=== PATIENT | male | born 2000 | race Caucasian/White ===

== ENCOUNTER 2022-04-07 07:40 | Observation (INO) ==
--- NOTE | 2022-04-01 15:57 | Anesthesiology Consultation ---
Date of Service April 01, 2022 Assessment & Plan (1) Encounter for pre-operative examination: COVID screening: Per assessment on 04/01: No known COVID-19 positive contacts or current COVID-19 related symptoms. Travel screen negative. Patient vaccinated. Surgeon arranging preop COVID testing. Awaiting results. Chart Review Chart Review: Acceptable Risk for Surgery (pending evaluation AM DOS) and Patient NOT seen in Pre Admission Testing History Surgery Operation Date: 04/07/22 10:05 Proposed Procedures p Right Tibia Open Reduction Internal Fixation - Vinh Zurita MD Height/Weight Height: 5 ft 9 in Weight: 101.151 kg Allergies Allergy/AdvReac Type Severity Reaction Status Date / Time No Known Allergies Allergy Verified 04/01/22 14:30 Medications Home Medications Medication Instructions Recorded Confirmed Last Taken ondansetron 4 mg disintegrating 4 mg PO Q6H PRN nausea and 03/31/22 04/01/22 Unknown tablet vomiting #12 tabs oxycodone 5 mg tablet 5 - 10 mg PO Q6H PRN Pain 04/01/22 04/01/22 Unknown Past Medical History Medical History Tibia fracture Fall (while walking dog) Past Surgical History Surgical History Hx of tonsillectomy Social History Smoking Status: Never smoker Do You Dip or Chew Tobacco: No Hx Alcohol Use: No Hx Substance Use: No substance use type: does not use Testing Electrocardiogram Date: 07/21/21 Findings: + ST @ (117) Sinus tachy in setting of PNA 07/21/21 - Rx'd abx > HR 91 subsequently at 03/31/22 [place] ER visit. Chest X-Ray Date: 07/21/21 No acute chest disease per report. Per [facility] ER note "Chest x-ray shows what appears to be an infiltrate in the area of the right middle lobe"
[~2022-04-07 07:40] MED LIST: LACTATED RINGER'S 1,000 ML IV SCH; ROPIVACAINE 0.5% 5 MG/ML 30 ML VIAL ONE; ceFAZolin 2000MG 2,000 MG/15 ML SYR IV SCH
[2022-04-07] MEDS ORDERED: ePHEDrine sulfate 50 MG/ML AMP IV PRN (08:48)
[2022-04-07] MEDS ORDERED: ATROPINE SULFATE 0.1 MG/ML 10ML SYR IV PRN (08:48)
[2022-04-07] MEDS ORDERED: ONDANSETRON INJ 2 MG/ML 2 ML VIAL IV PRN ×2 (08:48→16:21)
[2022-04-07] MEDS ORDERED: fentaNYL citrate 100 MCG/2 ML VIAL ONE ×2 (09:13→10:33)
[2022-04-07] MEDS ORDERED: MIDAZOLAM HCL 1 MG/ML 2ML VIAL ONE (09:13)
[2022-04-07] MEDS ORDERED: PROPOFOL IV EMULSION 10 MG/ML 20 ML VIAL IV ONE (09:20)
--- NOTE | 2022-04-07 09:48 | History & Physical Bridge Note ---
Date of Service April 07, 2022 History & Physical Bridge Note I have examined the patient, reviewed the History & Physical and in the interval since the performance of the History & Physical I have noted the following changes of clinical significance: no changes noted
[2022-04-07] MEDS ORDERED: DEXAMETHASONE SOD INJ 4 MG/ML VIAL ONE (10:33)
[2022-04-07] MEDS ORDERED: LIDOCAINE 2% 2 ML VIAL/AMP(20MG/ML) INFIL ONE ×2 (10:35)
[2022-04-07] MEDS ORDERED: HYDROmorphone INJ 2 MG/ML SYR/VIAL ONE (12:26)
[2022-04-07] MEDS ORDERED: KETOROLAC 30 MG/ML VIAL ONE (12:33)
--- NOTE | 2022-04-07 12:56 | Operative Report ---
Post Operative Report Pre & Post Diagnosis Operation Date: 04/07/22 10:05 Pre-Op Diagnosis: Fracture of Shaft of Right Tibia Post-Op Diagnosis: Fracture of Shaft of Right Tibia I identified the patient and participated in the time-out.: Yes Procedure Operation Date: 04/07/22 10:05 Actual Procedures p Right Tibia Open Reduction Internal Fixation(Right) - Vinh Zurita MD Surgeon Vinh Zurita MD Leader Writer Natasha Negrete no resident or fellow available Estimated Blood Loss 10 Findings Consistent with Post-Op Diagnosis Specimens None Anesthesia Type General Regional Complications none Disposition Accompanied Patient To Recovery: No Disposition: Recovery Room Indications Fletcher is about a week and a half out from an injury to his right leg which show was a closed displaced distal tibia fracture. Somewhat distal to miller easily and recommended ORIF he agreed to proceed. Prior to surgery he had intact sensation to the toes and he can wiggle his toes and extend the big toe with nearly normal strength. Description of Procedure Informed consent obtained. Patient identified. He identified the operative site as the right leg. I marked with my initials. A preoperative surgical timeout was performed and a preop dose of antibiotics was given. He was taken to the operating room positioned supine on the operating room table a bump was placed under the right hip and a tourniquet on the right thigh and bone foam under the right leg. The leg was prescribed prepped and draped in the usual sterile fashion. Shave clipped prepped. Swelling was mild to moderate with skin wrinkles present and bruising medially. No breakdown or blistering of the skin. DVT prophylaxis with early mobility and Lovenox. Limb exsanguinated with the Esmarch. Tourniquet inflated to 250 mmHg. A 15 to 20 cm incision was made just lateral to the crest of the tibia and distally paralleling the tibialis anterior tendon. Distally the saphenous neurovascular structures were looked for but not encountered. I left the extensor retinaculum intact and divided the tissue just medial to it and elevated it up distally. Subperiosteal exposure of the distal fragment and posteriorly was performed. The anterior compartment was opened up and an anterior compartment fasciotomy was performed in the standard fashion. The tibialis anterior was elevated up off of the tibia. There was extensive medial soft tissue disruption of the periosteum. The there was a small comminuted piece distally which was kept with soft tissue attachments and into the procedure was sutured in place with 2-0 Vicryl. Also at the conclusion the procedure bone graft from the reamings was placed along the anteromedial fracture site. The fracture was opened cleaned of soft tissue and hematoma then was anatomically reduced with a alligator type clamp placed directly on the bone posterolaterally. Fluoroscopic guidance was utilized. The fracture was stabilized with 2 bicortical 4.5 mm lag screws across the fracture site. This was then neutralized with a 13 hole anterolateral distal tibial plate from [facility]. Position checked fluoroscopically. Just above the ankle joint. Di stal locking screws drilled under fluoroscopic guidance. I placed 3 unicortical locking screws distally and 1 shaft screw distally followed by 3 bicortical locking screws distally.. Tourniquet let down after 90 minutes of inflation. There is no significant bleeding. Wound is copiously irrigated with sterile saline. Cross Cut Saw Operator fluoroscopic images were obtained. There was a proximal fibular fracture which did not require any intervention. The distal tibia fracture was moderately unstable. The medial portion of the plate did protrude slightly from the bone and could be faintly palpated underneath the skin distally. No tenting or distortion. The locking screws were placed from anteromedial to posterior and distal. Periosteum was reapproximated over the fracture site using 2-0 Vicryl. The anterior compartment tissues were allowed to fall back into place. The tibialis anterior tendon sheath and extensor retinaculum were elevated and left undisturbed otherwise. Skin closed with 2-0 Vicryl and keke. A bulky soft sterile dressing was applied Xeroform 4 x 4's ABD soft wrap and a posterior splint with the ankle in neutral. He was then awakened from anesthesia without difficulty and taken to the recovery room in stable condition. There were no specimens or complications. Counts were correct. Blood loss is estimated to be 10 cc. At the conclusion the operation I contacted his fiance. She did not answer the phone and I left a general message indicating that we were completed. Elevate ice DVT prophylaxis with Lovenox starting 12 hours postoperatively. Nonweightbearing. PT. I attest to the content of the Intraoperative Record and any orders documented therein. Any exceptions are noted below.
--- NOTE | 2022-04-07 13:09 | Operative Report ---
Post Operative Report Pre & Post Diagnosis Operation Date: 04/07/22 10:05 Pre-Op Diagnosis: Fracture of Shaft of Right Tibia Post-Op Diagnosis: Fracture of Shaft of Right Tibia I identified the patient and participated in the time-out.: Yes Procedure Operation Date: 04/07/22 10:05 Actual Procedures p Right Tibia Open Reduction Internal Fixation(Right) - Vinh Zurita MD Surgeon Natasha Negrete, LUX Rn Care Manager Natasha Negrete no resident or fellow available Estimated Blood Loss 10 Findings Consistent with Post-Op Diagnosis Specimens NOne Anesthesia Type General Regional Description of Procedure Patient was taken to the operating room, placed under general anesthesia, time out performed, prepped and draped in routine sterile fashion. He was given IV Ancef preoperatively. I was present during the entire case and assisted with positioning, tissue retraction, reduction of fracture, implantation of hardware, closure, splinting and dressings. Please see Dr. Zurita's operative report for further detail. Patient was awakened and taken to the recovery room in stable condition. I attest to the content of the Intraoperative Record and any orders documented therein. Any exceptions are noted below.
--- NOTE | 2022-04-07 13:17 | Fluoroscopy Report ---
FL tibia/fibula RT 2V CLINICAL HISTORY: Right tibial fracture. Internal fixation. COMPARISON STUDY: CT right ankle 03/31/2022. FLUOROSCOPY TIME: 32 seconds. FINDINGS: 4 fluoroscopic spot images of the right lower leg demonstrates internal fixation of the dis hernán tibial fracture with a cortical plate and screws. The hardware appears intact. The alignment is n ear-anatomic. IMPRESSION: Fluoroscopic assistance provided for internal fixation of a distal right tibial fracture. ACT 112: Negative or not required by law. Electronically signed by: Caleb Acuna M.D. 04/07/2022 1:16 PM
[2022-04-07] MEDS: fentaNYL citrate 100 MCG/2 ML VIAL IV PRN ×4 (13:33→13:50)
--- NOTE | 2022-04-07 14:11 | Anesthesiology Progress Note ---
Date of Service April 07, 2022 Anesthesia Post Procedure Vital Signs Vital Signs: Temp Pulse Resp BP Pulse Ox O2 Del Method O2 Flow Rate 04/07/22 14:00 97 H 16 141/87 H 97 Room Air 04/07/22 13:50 78 16 134/92 97 Room Air 04/07/22 13:40 84 16 141/98 H 96 Room Air 04/07/22 13:30 95 H 16 146/89 H 96 Room Air 04/07/22 13:20 75 16 139/83 98 Oxymask 5 04/07/22 13:11 98.2 F 79 16 124/76 99 Oxymask 5 04/07/22 08:23 97.7 F 95 H 16 103/84 95 Room Air Pain Intensity Right Lower Leg: Pain Intensity: 4 Transfer of Care Handoff Completed per policy Notes Mental Status: alert / awake / arousable and participated in evaluation Patient Amnestic to Procedure: Yes Nausea / Vomiting: adequately controlled Pain: adequately controlled Airway Patency, RR, SpO2: stable & adequate BP & HR: stable & adequate Hydration State: stable & adequate Anesthetic Complications: no major complications apparent and Pt Satisfied with anesthetic care
[2022-04-07] MEDS ORDERED: diphenhydrAMINE Capsule 25 MG CAP PO PRN (16:21)
[2022-04-07] MEDS ORDERED: traMADol HCL 50 MG TABLET PO PRN (16:21)
[2022-04-07] MEDS ORDERED: ACETAMINOPHEN 500 MG TAB PO PRN (16:21)
[2022-04-07] MEDS ORDERED: MAGNESIUM HYDROXIDE SUSP 30 ML UDC PO PRN (16:21)
[2022-04-07] MEDS ORDERED: METOCLOPRAMIDE HCL INJ 5 MG/ML 2 ML VIAL IV PRN (16:21)
[2022-04-07] MEDS ORDERED: bisacodyL 10 MG SUPP PR PRN (16:21)
[2022-04-07] MEDS ORDERED: NALOXONE HCL 0.4 MG/1 ML VIAL/CARP IV PRN (16:21)
[2022-04-07] MEDS ORDERED: ALUMINUM/MAGNESIUM SUSP 30 ML UDC PO PRN (16:21)
[2022-04-07] MEDS ORDERED: HYDROmorphone INJ 1 MG/ML SYRINGE ONE (16:24)
[2022-04-07] MEDS: HYDROmorphone INJ 1 MG/ML SYRINGE IV PRN (16:25)
--- NOTE | 2022-04-07 16:28 | Progress Notes ---
DATE OF SERVICE: 04/07/2022 The patient is resting comfortably in PACU due to bed availability. There is still tingling and numb ness in the right foot. His pain is well controlled. I discussed with him the surgical findings and plan. He is afebrile with stable vital signs. The foot is warm with capillary refill less than 2 s econds. Dorsalis pedis is 2+. He can wiggle the toes, but his foot is numb. We will continue to el evate and ice. Nonweightbearing. Continue routine postoperative plan. Job ID: [id number]
[2022-04-07] MEDS: SODIUM CHLORIDE 0.9% 1000ML 1,000 ML IV SCH (18:32)
[2022-04-07] MEDS: KETOROLAC 30 MG/ML VIAL IV SCH ×2 (18:35→22:29)
[2022-04-07] MEDS: oxyCODONE HCL IR 5 MG TAB (IMMEDIATE RELEASE) PO PRN (20:14)
[2022-04-07] MEDS: ceFAZolin 2000MG 2,000 MG/15 ML SYR IV SCH (20:15)
[2022-04-07] MEDS: DOCUSATE SODIUM 100 MG CAP PO SCH (20:17)
[2022-04-07] MEDS ORDERED: SENNA 8.6 MG TAB PO SCH (21:00)
[2022-04-08] MEDS: SODIUM CHLORIDE 0.9% 1000ML 1,000 ML IV SCH (03:23)
[2022-04-08] MEDS: ceFAZolin 2000MG 2,000 MG/15 ML SYR IV SCH (03:27)
[2022-04-08] MEDS: KETOROLAC 30 MG/ML VIAL IV SCH ×2 (05:59→11:50)
[2022-04-08] MEDS: ENOXAPARIN INJ 30 MG/0.3 ML SYR SQ SCH ×2 (06:00→14:26)
[2022-04-08] MEDS: HYDROmorphone INJ 1 MG/ML SYRINGE IV PRN (07:18)
[2022-04-08] MEDS: DOCUSATE SODIUM 100 MG CAP PO SCH (08:52)
[2022-04-08] MEDS ORDERED: MULTIVITAMIN TAB PO SCH (09:00)
[2022-04-08] MEDS: oxyCODONE HCL IR 5 MG TAB (IMMEDIATE RELEASE) PO PRN (11:53)
--- NOTE | 2022-04-08 13:46 | Progress Notes ---
DATE OF SERVICE: 04/08/2022 Resting comfortably in bed. Uncomfortable, but less painful than previous. DP is 1+. Sensation int act. Capillary refill less than 2 seconds. Foot warm. He can flex and extend toes. Dressing is cl nikkie and dry. He did well with physical therapy. He declined his a.m. Lovenox injection. We will re inforce the importance of this for him. He will be in PT next week. Nonweightbearing. Crutches, el evation, ice. I think acceptable for discharge. If there are any problems with pain, swelling, feve rs or anything else, let us know. Otherwise, we will see him next week. Leave dressing intact. Nohemy enox for DVT prophylaxis. Job ID: [id number]
--- NOTE | 2022-04-08 13:55 | Discharge Summary ---
Date of Service April 08, 2022 Discharge Data Procedures Performed Operation Date: 04/07/22 10:05 Actual Procedures p Right Tibia Open Reduction Internal Fixation(Right) - Vinh Zurita MD Hospital Course (1) Spiral fracture of shaft of tibia: Patient was admitted to [facility] after undergoing an open reduction internal fixation right tibia shaft fracture with Dr. Zurita on 04/07/22. His surgery was performed with general anesthesia, with peripheral nerve block. He was given 2 gm IV Ancef for surgical prophylaxis, which was continued for 24 hours after his surgery. He was allowed out of bed, non weight bearing right lower extremity with use of crutches. He was placed in a splint that was to remain in place at all times. Ice to right ankle as needed for pain and/or swelling. Regular diet was given, which he tolerated during his inpatient stay. He was given IV dilaudid, oxycodone and tramadol as needed for pain. His pain was well controlled on oxycodone. PT and OT were consulted and he did well out of bed and was deemed safe for discharge to his home. He was placed on Lovenox 30mg BID for DVT prophylaxis, which he initially refused, but after encouragement he did accept a dose prior to discharge from the hospital. His vital signs remained stable during his inpatient stay. Discharge instructions were reviewed, he will follow up as scheduled. He was discharged to his home in stable condition on 04/08/22 with his girlfriend.
== END 2022-04-08 15:29 | disposition home or self-care (01) ==
LOC: ASU 07:40 → PACUINP 13:09 → INTOOBSV 13:09 → 3E 18:23